=== PATIENT | female | born 1990 | race Caucasian/White ===

== ENCOUNTER 2024-03-22 20:39 | Emergency (ER) | payer OTHER ==
[~2024-03-22] VITALS: Ht 177.8 cm; Wt 80.3 kg
[2024-03-22] MEDS ORDERED: ACETAMINOPHEN ES 500 MG TABLET ONE (22:42)
[2024-03-22] MEDS ORDERED: KETOROLAC TROMETHAMINE INJ 30 MG/ML VIAL ONE (22:42)
[2024-03-22] MEDS: KETOROLAC TROMETHAMINE 15 MG/ML VIAL IM ONE (22:46)
[2024-03-22] MEDS: ACETAMINOPHEN ES 500 MG TABLET PO ONE (22:46)
[2024-03-22 23:28] VITALS: BP 128/68; TEMP 98.3; O2SAT 98
== END 2024-03-22 23:29 | disposition home or self-care (01) ==
LOC: ER 20:43
DX: S13.4XXA Sprain of ligaments of cervical spine, initial encounter (principal); M25.562 Pain in left knee; M54.2 Cervicalgia; Z60.2 Problems related to living alone; V89.2XXA Person injured in unspecified motor-vehicle accident, traffic, initial encounter; Y93.89 Activity, other specified; Y92.89 Other specified places as the place of occurrence of the external cause; Y99.8 Other external cause status
CPT/HCPCS: 99285; 72125; 96372; 73564; 70450; J1885